=== PATIENT | female | born 1960 | race Caucasian/White ===

== ENCOUNTER 2017-09-29 08:50 | Inpatient (IN) | payer OTHER ==
[~2017-09-29] VITALS: Ht 167.6 cm; Wt 61.2 kg
--- NOTE | 2017-09-29 09:01 | ED CARDIAC/CP/PALPITATIONS ---
History of Present Illness General Chief Complaint: Chest Pain Stated Complaint: CHEST PAIN X 3 DAYS Source: patient Exam Limitations: no limitations Vital Signs & Intake/Output Vital Signs & Intake/Output Vital Signs Date Time Temp Pulse Resp B/P B/P Pulse O2 O2 Flow FiO2 Mean Ox Delivery Rate 09/30 0731 98.7 67 20 105/56 95 Room Air 09/30 0000 Room Air 09/29 2257 99.4 77 18 101/55 94 Room Air 09/29 2156 Room Air 09/29 1700 97 Room Air 09/29 1700 98.4 77 18 133/66 96 Room Air 09/29 1657 98.4 77 18 133/66 96 Room Air 09/29 1524 98.7 73 20 120/62 95 Room Air 09/29 1335 98.6 88 19 158/70 98 Room Air 09/29 1023 98 Room Air 09/29 0856 98.2 100 18 160/73 96 Room Air ED Intake and Output 09/30 0000 09/29 1200 Intake Total 490 0 Output Total Balance 490 0 Intake, IV 10 Intake, Oral 480 0 Number 0 Bowel Movements Patient 135 lb 140 lb Weight Weight Reported by Patient Measurement Method Allergies Coded Allergies: nitrofurantoin (From MACRODANTIN) (UNSURE 09/29/17) Reconcile Medications No Known Home Medications Triage Note: 57 YEAR OLD FEMALE TO ER WITH COMPLAINTS OF NON RADIATING REPRODUCIBLE L SIDE CP FOR THE PAST 3 DAYS WITH SOME SOB. ALSO COMPLAINS OF COUGH,SINUS CONGESTION , PAIN INCREASES WITH MOVEMENT AND COUGHING Triage Nurses Notes Reviewed? yes Onset: Gradual Duration: waxing and waning Timing: recent history Quality/Severity: moderate, sharp, stabbing Radiation: jaw, arms HPI: Patient is a 57-year-old female who presents emergency room with concerns of a three-day history of nasal congestion not feeling well mild nonproductive cough and left-sided chest wall pain made worse with positional movements. Denies any cardiac history denies any smoking history drink alcohol on occasion Complains of dizziness and intermittent episodes of left jaw and arm pain Patient took aspirin yesterday none today Denies any nausea vomiting leg swelling hemoptysis history of DVT or PE (Latanya REYES,Marcio) Past History Travel History Traveled to [place] past 21 day No Medical History Any Pertinent Medical History? none Neurological: NONE EENT: NONE Cardiovascular: NONE Respiratory: NONE Gastrointestinal: NONE Hepatic: NONE Renal: NONE Musculoskeletal: NONE Psychiatric: NONE Endocrine: NONE Blood Disorders: NONE Cancer(s): NONE ACCOUNTS PAYABLE COORDINATOR/Reproductive: NONE Surgical History Surgical History: non-contributory Psychosocial History What is your primary language Sinhala Tobacco Use: Never used ETOH Use: denies use Illicit Drug Use: denies illicit drug use Family History Hx Contributory? No (Marcio Morris) Review of Systems Review of Systems Constitutional: Reports: no symptoms. EENTM: Reports: see HPI. Respiratory: Reports: see HPI, cough. Cardiovascular: Reports: no symptoms. GI: Reports: no symptoms. Genitourinary: Reports: no symptoms. Musculoskeletal: Reports: no symptoms. Skin: Reports: no symptoms. Neurological/Psychological: Reports: no symptoms. Hematologic/Endocrine: Reports: no symptoms. Immunologic/Allergic: Reports: no symptoms. All Other Systems: Reviewed and Negative (Marcio Morris) Physical Exam Physical Exam General Appearance: no apparent distress, alert, comfortable Head: atraumatic Eyes: Bilateral: normal appearance, PERRL, EOMI. Ears, Nose, Throat: normal ENT inspection, hearing grossly normal, nasal congestion Neck: normal inspection Respiratory: normal breath sounds, chest non-tender, no respiratory distress Cardiovascular: regular rate/rhythm Gastrointestinal: normal bowel sounds, soft, non-tender Extremities: no edema Neurologic/Psych: no motor/sensory deficits, awake, alert, oriented x 3 Skin: intact, normal color Core Measures ACS in differential dx? Yes CVA/TIA Diagnosis No Sepsis Present: No Sepsis Focused Exam Completed? No (Marcio Morris) Progress Differential Diagnosis: AMI, aortic dissection, atrial fibrillation, cholecystitis, CHF/pulm edema, costochondritis, hyperkalemia, hypovolemia, hyperthyroid, hyperventilation, intracranial hemorrhage, musculoskeletal pain, myocarditis, pancreatitis, pericarditis, pneumonia, pneumothorax, PSVT, pulmonary embolism, PUD/GERD, PVCs/PACs, respiratory failure, rib fracture, sepsis, unstable angina, V-fib/V-Tach, WPW syndrome Plan of Care: Orders Procedure Date/time Status Change service to 09/30 0720 Active CBC WITHOUT DIFFERENTIAL 09/30 0600 Active BASIC ELECTROLYTES PLUS BUN&CR 09/30 0600 Active Regular Diet 09/29 D Active THERAPIST ORDERS 09/290 Complete RT: Evaluation 09/29 2153 Active Pathway - chart 09/30 1811 Active House Staff 05/24 1812 Active Weight 09/29 1811 Complete Vital Signs 09/29 181 Active Teach/Educate 09/29 181 Active Pain Treatment and Response 09/29 181 Active Nutritional Intake, Monitor 09/29 181 Active Isolation 09/29 181 Active Intake & Output 09/29 181 Active Patient Care Conference 09/29 181 Active Activity/Ambulation 09/29 181 Active STREP PNEUMO URINARY ANTIGEN 09/29 181 Active LEGIONELLA URINARY ANTIGEN 09/29 181 Active URINALYSIS 09/29 181 Active CYTOLOGY SPECIMEN 09/29 181 Active Patient Data 09/29 1550 Active ED Holding Orders 09/29 1533 Active Admit to inpatient 09/29 1533 Active Vital Signs 09/29 1533 Active Code Status 09/29 1533 Active LOWER RESPIRATORY CULTURE 09/29 1455 Active BLOOD CULTURE 09/29 1455 Active TROPONIN LEVEL 09/29 1300 Complete EKG 09/29 1300 Active Intake & Output 09/29 1023 Active RHEUMATOID FACTOR 09/29 1002 Complete WESTERGREN SED RATE 09/29 1002 Complete ANTINUCLEAR ANTIBODY 09/29 1002 Active TROPONIN LEVEL 09/29 0901 Complete D-DIMER 09/29 0901 Complete COMPREHENSIVE METABOLIC PANEL 09/29 0901 Complete CBC WITHOUT DIFFERENTIAL 09/29 0901 Complete EKG 09/29 0853 Active TRC EVALUATION (GEN) 09/29 UNK Complete Lab Add-on Test 09/29 UNK Active VTE Mechanical Prophylaxis 09/29 UNK Active Current Medications Sig/Pramod Start time Last Medication Dose Stop Time Status Admin Albuterol Sulfate 3 ML TID 09/30 0900 AC 09/29 (Proventil) 213 Acetaminophen 325 MG Q6P PRN 09/29 181 AC (Tylenol) Ibuprofen 600 MG Q6P PRN 09/29 181 AC 09/29 (Motrin) 211 Ketorolac 15 MG Q6P PRN 09/29 181 AC Tromethamine (Toradol) Laboratory Tests 09/29/17 1915: TB Test (QFT) Mitogen Pending, TB Test Mitogen - Nil Pending, TB Test Antigen - Nil Pending, TB Test (QFT) Interp Pending 09/29/17 1300: Troponin I < 0.01 09/29/17 1002: Rheum Factor Semi-Quant < 8.6 09/29/17 1002: Anion Gap 12, Estimated GFR > 60, BUN/Creatinine Ratio 21.3, Glucose 135 H, Calcium 9.6, Total Bilirubin 0.5, AST 22, ALT 22, Alkaline Phosphatase 75, Troponin I < 0.01, Total Protein 7.6, Albumin 4.6, Globulin 3.0, Albumin/ Globulin Ratio 1.5, D-Dimer High Sensitivty 201, CBC w Diff NO MAN DIFF REQ, RBC 4.40, MCV 89.6, MCH 31.1 H, MCHC 34.7, RDW 13.7, MPV 8.8, Gran % 61.3, Lymphocytes % 32.1, Monocytes % 5.4, Eosinophils % 0.7, Basophils % 0.5, Absolute Granulocytes 8.6 H, Absolute Lymphocytes 4.5 H, Absolute Monocytes 0.8 H, Absolute Eosinophils 0.1, Absolute Basophils 0.1, ESR Westergren 61 H, JAC Titer Pending, Anti-Nuclear Antibody Pending Microbiology 09/29 1809 URINE ROUT: Legionella Antigen - COLB 09/29 181 URINE ROUT: Streptococcus pneumoniae Antigen (M - COLB 09/29 1535 BLOOD: Blood Culture - RECD 09/29 1520 BLOOD: Blood Culture - RECD 09/29 1455 LOWER RESP: Respiratory Culture - COLB 09/29 1455 LOWER RESP: Gram Stain - COLB Patient initially denies any smoking history however after reviewing chest x-ray findings for concerns of lytic lesion to the left chest as she was given copies of the chest x-ray she does admit that she is a smoker where "I don't want to a smoking history on my record due to insurance not covering me" I discussed chest x-ray results with patient for concerns of multiple myeloma versus metastasis in which she will receive CT scan of chest Patient was aware of the image findings CT scan was resulted showing concerns of cavitary lesion possible consolidation and a small suspicion of septic emboli Discussed patient with Dr. Palma who advised patient to be admitted for further evaluation treatment and receive echocardiograM and IV antibiotics and pulmonary consultation Discussed admission with patient who agrees and has no questions Diagnostic Imaging: Viewed by Me: Radiology Read, CT Scan. Radiology Impression: acute abnormality Initial ED EKG: normal p-waves, normal QRS complex, normal sinus rhythm, NSR 92 BPM Comments: PATIENT: YOBANI JULIEN PRESENT AGE: 57 PATIENT ACCOUNT NO: [id number] : 60 LOCATION: [facility] ORDERING PHYSICIAN: Marcio REYES SERVICE DATE: 09/29/17 EXAM TYPE: CAT - CTA CHEST-PULMONARY EMBOLISM EXAMINATION: CT ANGIOGRAM CHEST WITHOUT AND WITH CONTRAST (CT PULMONARY ANGIOGRAM FOR PE) CLINICAL INFORMATION: Left chest wall pain. Shortness of breath. Evaluate for abnormality seen on the recent chest x-ray. COMPARISON: Chest x-ray of 09/29/2017 performed at 10:44 AM. TECHNIQUE: Prior to contrast administration, noncontrast localization images were obtained. Subsequently, multidetector volumetric imaging was performed from the thoracic inlet to below the diaphragms following the administration of 95 mL 320 intravenous contrast. No contrast reaction reported. Sagittal, coronal, and MIP oblique sagittal reformatted images were obtained on the CT workstation, uploaded to PACS, and reviewed. Total exam dose-length product 207.80 mGy-cm. FINDINGS: QUALITY OF STUDY/CONTRAST BOLUS: Satisfactory PULMONARY ARTERIES: No central or segmental pulmonary emboli. THORACIC AORTA: No aneurysm or dissection. LUNG: [id number]-[id number] changes of emphysema are noted with upper lobe predominance. There are multiple scattered tiny tree-in-bud opacities bilaterally, greater in the left upper lobe. A large cavitary thick-walled lesion is noted in the left apex corresponding to the finding seen on the chest x-ray measuring 1.3 x 2.4 x 2.2 cm. Several other smaller similar cavitary thick-walled lesions are noted in the left upper lobe. Scattered bronchial and bronchiolar wall thickening is noted. There are small patchy airspace opacities surrounding the thickened bronchi/bronchioles in the superior segment of the left upper lobe as well as left upper lobe anteromedially. There is a largest consolidation in the left upper lobe anterior paramediastinal region in the mid chest (series 2 image 260), measuring approximately 1.5 x 4.8 cm in AP and transverse dimension. There is a 0.4 cm discrete nodule in the right lower lobe laterally (series 2 image 290). Less pronounced changes of bronchial thickening and tree-in-bud opacities are noted in the right lung. There are biapical pleural parenchymal densities presumably representing scarring. A 0.4 cm oval nodular density is noted in the left lower lobe posteriorly (series 2 image 304). PLEURA: No pleural effusion or pneumothorax. MEDIASTINUM: Normal heart size. Trace pericardial effusion. No hilar or mediastinal lymphadenopathy. No evidence of septal bowing or right heart strain. CHEST WALL/AXILLA: No axillary or internal mammary lymphadenopathy. OSSEOUS STRUCTURES: No acute or suspicious osseous abnormality. UPPER ABDOMEN: There is a partially exophytic hypodense lesion arising from the upper pole of the left kidney measuring 2.2 cm (series 2 image 432) which does not meet CT Hounsfield units criteria for a simple cyst. Mild left pelviectasis is partially seen. No reflux of contrast into the hepatic veins to suggest elevated right heart pressures. IMPRESSION: 1. No evidence of pulmonary embolism. 2. Frka-jb-pcnyossx changes of centrilobular emphysema with upper lobe predominance. 3. Multiple thick-walled cavitary lesions in the left lung predominantly in the left upper lobe with the largest one in the left apex most probably represent thick-walled dilated bronchi. Possibility of septic emboli is in the differential, however, is thought to be less likely. Multiple tree-in-bud opacities throughout the lungs, left greater than right as detailed above. Left upper lobe paramediastinal consolidation with air bronchograms. The findings are consistent with airway infection and bronchopneumonia. Recommend close clinical follow up and imaging follow up. 4. No evidence of lymphadenopathy or pleural effusions. 5. A few discrete pulmonary nodules in the bilateral lower lobes measuring 4 mm. 6. A 2.2 cm partially exophytic mass arising from the posterior aspect of the left renal upper pole. Recommend ultrasound correlation. VTE: Negative DICTATED BY: Henri HARMON,Anal DATE/TIME DICTATED:09/29/171343 AERONAUTICS TEACHER:SUSANNE DATE/TIME TRANSCRIBED:09/29/171343 PATIENT: YOBANI JULIEN PRESENT AGE: 57 PATIENT ACCOUNT NO: [id number] : 60 LOCATION: [facility] ORDERING PHYSICIAN: Marcio REYES SERVICE DATE: 09/29/17 EXAM TYPE: RAD - XRY-CHEST XRAY, TWO VIEWS EXAMINATION: XR CHEST 2 VIEWS CLINICAL INFORMATION: Left chest wall pain. COMPARISON: None. TECHNIQUE: Frontal and lateral views of the chest were obtained. FINDINGS: The heart, great vessels, pulmonary vasculature and mediastinum are normal. The lungs show no focal infiltrate, effusion or pneumothorax. Approximately 3 small nodules are questioned in the lateral left apex and within the retrosternal region. Lytic foci are suspected within the left first, third and fourth ribs, the left clavicle and the right fifth rib. There is no acute osseous abnormality. IMPRESSION: Small left upper lobe and retrosternal nodules are questioned. Lytic foci are seen within the bilateral ribs and left clavicle. The possibilities of metastases and multiple myeloma are raised. Recommend further evaluation with CT. DICTATED BY: Ben Harris MD DATE/TIME DICTATED:09/29/171141 AERONAUTICS TEACHER:SUSANNE (Marcio Morris) Departure Departure Disposition: STILL A PATIENT Condition: Stable Clinical Impression Primary Impression: Cavitary lesion of lung Secondary Impressions: Leukocytosis, Pneumonia Departure Forms: Customer Survey General Discharge Information Prescriptions: Current Visit Scripts No Known Home Medications Admission Note Spoke With: Sj Noguera MD Documentation of Exam: Documentation of any treatments & extenuating circumstances including Concerns Regarding Discharge (functional status, medication knowledge or non-compliance, living conditions, etc.) that warrant an admission rather than observation: [ Discussed patient with Dr. NOGUERA in which patient requires general medicine admission for concerns of abnormal CT scan findings and symptoms of chest pain and coughing, patient requires pulmonary consultation and infectious disease consultation echocardiogram repeat labs and IV antibiotics] (Marcio Morris) PA/SHELL TRIM OPERATOR Co-Sign Statement Statement: ED Attending supervision documentation- [X] I saw and evaluated the patient. I have also reviewed all the pertinent lab results and diagnostic results. I agree with the findings and the plan of care as documented in the PA's/SHELL TRIM OPERATOR's documentation. [X] I have reviewed the ED Record and agree with the PA's/SHELL TRIM OPERATOR's documentation. [] Additions or exceptions (if any) to the PAs/SHELL TRIM OPERATOR's note and plan are summarized below: [Patient to be admitted for cavitary lesion seen on the chest x-ray as well as the possibility of septic emboli. Patient will need pulmonary consultation as well as cardiology consultation for an echocardiogram, broad-spectrum antibiotics, IV fluids] (Autumn HARMON,Ismael Rainey) Critical Care Note Critical Care Note Critical Care Time: non-applicable (Marcio Morris)
[2017-09-29 10:13] LABS: ABSOLUTE BASOPHIL COUNT 0.1 /CUMM (0.0-0.2); ABSOLUTE EOSINOPHIL COUNT 0.1 /CUMM (0.0-0.7); ABSOLUTE GRANULOCYTE CT 8.6 /CUMM (1.4-6.5); ABSOLUTE LYMPH COUNT 4.5 /CUMM (1.2-3.4); ABSOLUTE MONOCYTE COUNT 0.8 /CUMM (0.10-0.60); BASOPHIL % 0.5 % (0.0-2.0); EOSINOPHIL % 0.7 % (0-5); GRANULOCYTE % 61.3 % (42.2-75.2); HEMATOCRIT 39.4 % (37-47); MEAN CORPUSCULAR HGB 31.1 PG (27.0-31.0); MEAN CORPUSCULAR HGB CONC 34.7 G/DL (33.0-37.0); MEAN CORPUSCULAR VOLUME 89.6 FL (81.0-99.0); MEAN PLATELET VOLUME 8.8 FL (7.4-10.4); PLATELET COUNT 308 /CUMM (130-400); RBC DISTRIBUTION WIDTH 13.7 % (11.5-14.5); WHITE BLOOD CELL COUNT 14.1 /CUMM (4.8-10.8)
--- NOTE | 2017-09-29 11:54 | RADIOLOGY REPORT ---
EXAMINATION: XR CHEST 2 VIEWS CLINICAL INFORMATION: Left chest wall pain. COMPARISON: None. TECHNIQUE: Frontal and lateral views of the chest were obtained. FINDINGS: The heart, great vessels, pulmonary vasculature and mediastinum are normal. The lungs show no focal infiltrate, effusion or pneumothorax. Approximately 3 small nodules are questioned in the lateral left apex and within the retrosternal region. Lytic foci are suspected within the left first, third and fourth ribs, the left clavicle and the right fifth rib. There is no acute osseous abnormality. IMPRESSION: Small left upper lobe and retrosternal nodules are questioned. Lytic foci are seen within the bilateral ribs and left clavicle. The possibilities of metastases and multiple myeloma are raised. Recommend further evaluation with CT.
--- NOTE | 2017-09-29 14:38 | CT SCAN REPORT ---
EXAMINATION: CT ANGIOGRAM CHEST WITHOUT AND WITH CONTRAST (CT PULMONARY ANGIOGRAM FOR PE) CLINICAL INFORMATION: Left chest wall pain. Shortness of breath. Evaluate for abnormality seen on the recent chest x-ray. COMPARISON: Chest x-ray of 09/29/2017 performed at 10:44 AM. TECHNIQUE: Prior to contrast administration, noncontrast localization images were obtained. Subsequently, multidetector volumetric imaging was performed from the thoracic inlet to below the diaphragms following the administration of 95 mL 320 intravenous contrast. No contrast reaction reported. Sagittal, coronal, and MIP oblique sagittal reformatted images were obtained on the CT workstation, uploaded to PACS, and reviewed. Total exam dose-length product 207.80 mGy-cm. FINDINGS: QUALITY OF STUDY/CONTRAST BOLUS: Satisfactory PULMONARY ARTERIES: No central or segmental pulmonary emboli. THORACIC AORTA: No aneurysm or dissection. LUNG: Onkz-sn-rbqthnik changes of emphysema are noted with upper lobe predominance. There are multiple scattered tiny tree-in-bud opacities bilaterally, greater in the left upper lobe. A large cavitary thick-walled lesion is noted in the left apex corresponding to the finding seen on the chest x-ray measuring 1.3 x 2.4 x 2.2 cm. Several other smaller similar cavitary thick-walled lesions are noted in the left upper lobe. Scattered bronchial and bronchiolar wall thickening is noted. There are small patchy airspace opacities surrounding the thickened bronchi/bronchioles in the superior segment of the left upper lobe as well as left upper lobe anteromedially. There is a largest consolidation in the left upper lobe anterior paramediastinal region in the mid chest (series 2 image 260), measuring approximately 1.5 x 4.8 cm in AP and transverse dimension. There is a 0.4 cm discrete nodule in the right lower lobe laterally (series 2 image 290). Less pronounced changes of bronchial thickening and tree-in-bud opacities are noted in the right lung. There are biapical pleural parenchymal densities presumably representing scarring. A 0.4 cm oval nodular density is noted in the left lower lobe posteriorly (series 2 image 304). PLEURA: No pleural effusion or pneumothorax. MEDIASTINUM: Normal heart size. Trace pericardial effusion. No hilar or mediastinal lymphadenopathy. No evidence of septal bowing or right heart strain. CHEST WALL/AXILLA: No axillary or internal mammary lymphadenopathy. OSSEOUS STRUCTURES: No acute or suspicious osseous abnormality. UPPER ABDOMEN: There is a partially exophytic hypodense lesion arising from the upper pole of the left kidney measuring 2.2 cm (series 2 image 432) which does not meet CT Hounsfield units criteria for a simple cyst. Mild left pelviectasis is partially seen. No reflux of contrast into the hepatic veins to suggest elevated right heart pressures. IMPRESSION: 1. No evidence of pulmonary embolism. 2. Cqgf-ax-nswlajeg changes of centrilobular emphysema with upper lobe predominance. 3. Multiple thick-walled cavitary lesions in the left lung predominantly in the left upper lobe with the largest one in the left apex most probably represent thick-walled dilated bronchi. Possibility of septic emboli is in the differential, however, is thought to be less likely. Multiple tree-in-bud opacities throughout the lungs, left greater than right as detailed above. Left upper lobe paramediastinal consolidation with air bronchograms. The findings are consistent with airway infection and bronchopneumonia. Recommend close clinical follow up and imaging follow up. 4. No evidence of lymphadenopathy or pleural effusions. 5. A few discrete pulmonary nodules in the bilateral lower lobes measuring 4 mm. 6. A 2.2 cm partially exophytic mass arising from the posterior aspect of the left renal upper pole. Recommend ultrasound correlation. VTE: Negative
--- NOTE | 2017-09-29 15:52 | History & Physical ---
Justice Moore 09/29/17 1551: General Information and HPI History of Present Illness: Ms. Winslow is a 57 yo F with nicotine dependence and cervical cancer who presents to the ED with CP 3 days. Patient reports she had left-sided chest pain 10/10 in severity that radiated to her left breast. It lasted for hours, was exacerbated by deep inspiration and movement with no alleviating factors. It was accompanied by SOB, nonproductive cough and nasal congestion. Last night she noticed after eating her dinner she felt jaw numbness. Last Tuesday she recalls her CP was accompanied by left arm pain in which she had to use her right arm to move her left due to excruciating pain. She has intermittent migratory joint pains that she sees a Analyst Programmer at [place] for but the diagnosis is unclear. 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 She also reports 15 years ago she was PPD positive and placed on TB medications for 2 days. Her repeat PPD was negative. Five years ago she traveled to [place] and has had a persistent cough since then. Recently at work she found that she has been disoriented but quickly resolves. She has not had an influenza vaccine due to her personal wishes. She denies family history of malignancy, fever, chills, night sweats, nausea, vomiting, epigastric pain, reproducible CP, urinary or bowel symptoms In the ED she was given IV Unasyn 1 dose and ASA 3251 dose Allergies/Medications Allergies: Coded Allergies: nitrofurantoin (From MACRODANTIN) (UNSURE 09/29/17) Home Med list No Known Home Medications Past History Travel History Traveled to [place] past 21 day No Medical History Neurological: NONE EENT: NONE Cardiovascular: NONE Respiratory: NONE Gastrointestinal: NONE Hepatic: NONE Renal: NONE Musculoskeletal: NONE Psychiatric: NONE Endocrine: NONE Blood Disorders: NONE Cancer(s): NONE MACHINE GRAINER/Reproductive: NONE Surgical History Surgical History: non-contributory Past Family/Social History Psychosocial History ETOH Use: denies use Illicit Drug Use: denies illicit drug use Review of Systems Review of Systems Constitutional: Reports: see HPI. Exam & Diagnostic Data Last 24 Hrs of Vital Signs/I&O Vital Signs Date Time Temp Pulse Resp B/P B/P Pulse O2 O2 Flow FiO2 Mean Ox Delivery Rate 09/29 1700 97 Room Air 09/29 1700 98.4 77 18 133/66 96 Room Air 09/29 1657 98.4 77 18 133/66 96 Room Air 09/29 1524 98.7 73 20 120/62 95 Room Air 09/29 1335 98.6 88 19 158/70 98 Room Air 09/29 1023 98 Room Air 09/29 0856 98.2 100 18 160/73 96 Room Air Intake & Output 09/29 1600 09/29 0800 09/29 0000 Intake Total 0 Output Total Balance 0 Intake, Oral 0 Patient 140 lb Weight Physical Exam General Appearance Alert, Oriented X3, Cooperative, No Acute Distress HEENT Atraumatic, PERRLA, EOMI, Mucous Membr. moist/pink Cardiovascular Regular Rate, Normal S1, Normal S2, No Murmurs Lungs Clear to Auscultation, Normal Air Movement Abdomen Normal Bowel Sounds, Soft, No Tenderness Extremities No Edema, Normal Pulses, No Tenderness/Swelling Last 24 Hrs of Labs/Ramos: Laboratory Tests 09/29/17 1915: TB Test (QFT) Mitogen Pending, TB Test Mitogen - Nil Pending, TB Test Antigen - Nil Pending, TB Test (QFT) Interp Pending 09/29/17 1300: Troponin I < 0.01 09/29/17 1002: Rheum Factor Semi-Quant < 8.6 09/29/17 1002: Anion Gap 12, Estimated GFR > 60, BUN/Creatinine Ratio 21.3, Glucose 135 H, Calcium 9.6, Total Bilirubin 0.5, AST 22, ALT 22, Alkaline Phosphatase 75, Troponin I < 0.01, Total Protein 7.6, Albumin 4.6, Globulin 3.0, Albumin/ Globulin Ratio 1.5, D-Dimer High Sensitivty 201, CBC w Diff NO MAN DIFF REQ, RBC 4.40, MCV 89.6, MCH 31.1 H, MCHC 34.7, RDW 13.7, MPV 8.8, Gran % 61.3, Lymphocytes % 32.1, Monocytes % 5.4, Eosinophils % 0.7, Basophils % 0.5, Absolute Granulocytes 8.6 H, Absolute Lymphocytes 4.5 H, Absolute Monocytes 0.8 H, Absolute Eosinophils 0.1, Absolute Basophils 0.1, ESR Westergren 61 H, JAC Titer Pending, Anti-Nuclear Antibody Pending Microbiology 09/29 1810 URINE ROUT: Legionella Antigen - COLB 09/29 1810 URINE ROUT: Streptococcus pneumoniae Antigen (M - COLB 09/29 1535 BLOOD: Blood Culture - RECD 09/29 1520 BLOOD: Blood Culture - RECD 09/29 1455 LOWER RESP: Respiratory Culture - ORD 09/29 1455 LOWER RESP: Gram Stain - ORD Diagnostic Data EKG Results NSR, HR 62, QTc 415 Assessment/Plan Assessment: Ms. Winslow is a 57 yo F with nicotine dependence and cervical cancer who presents to the ED with CP 3 days. Problem list: #Atypical chest pain -pleuritic in nature and less likely ACS #?CAP #Left upper lobe and retrosternal nodules - may be secondary to malignancy given her smoking history Plan: Admit to general med for further evaluation and management Renal ultrasound for previous renal mass seen Watch off antibiotics We will obtain a quantiferon for history of positive PPD as per ID Pulm consult Obtain records from [place] Diet: Regular DVT ppx: Enoxaparin Code: Full As Ranked By This Provider Problem List: 1. Pneumonia 2. Cavitary lesion of lung 3. Leukocytosis Core Measures/Misc (01/23) Acute Coronary Syndrome ACS Diagnosis: No Congestive Heart Failure Congestive Heart Failure Diagnosis No Cerebrovascular Accident CVA/TIA Diagnosis: No VTE (View Protocol) VTE Risk Factors Age>40 No Mechanical VTE Prophylaxis d/t N/A MechProphylax Ordered No VTE Pharm Prophylaxis d/t LowRisk-No Interven Req'd Sepsis (View protocol) Sepsis Present: No If YES complete Sepsis Event Note If YES complete Sepsis Event Note Sj Noguera MD 09/29/17 1733: Core Measures/Misc (01/23) Sepsis (View protocol) If YES complete Sepsis Event Note If YES complete Sepsis Event Note Attending MD Review Statement Attending Statement Attending MD Statement: examined this patient, discuss w/resident/PA/BRIM SETTER, agreed w/resident/PA/BRIM SETTER, discussed with family, reviewed EMR data (avail), discussed with nursing, discussed with case mgmt, amended to note Attending Assessment/Plan: Patient is a 57-year-old female with history of degenerative joint disease who presents to the emergency room with complaints of chest pain going on for the past 3 days. Denies fever chills. Denies weight loss. Denies diaphoresis. Denies recent travel. CT imaging in the emergency room shows mild to moderate emphysema as well as multiple thick-walled cavitary lesions predominantly in the left upper lobe. Concerns have been rates for bronchopneumonia versus septic emboli. Also incidentally noted is a 2.2 cm partially exophytic mass in the left renal upper pole. She has few discrete pulmonary nodules bilateral lower lung bases 4 mm in size. She is afebrile. She is hemodynamically stable. She does have an elevated white count. She does report cough productive of clear phlegm. Due to concern for pneumonia and particularly to rule out septic emboli, she was referred to the medical service for further management. On examination she is not in any respiratory distress. She has poor entry bilaterally with no added sounds. heart sounds are regular. Abdomen is soft and nontender. No peripheral edema. No palpable lymphadenopathy. Assessment Patient is a chronic smoker with a greater than 40 pack year history presenting with complaints of chest pain. CT imaging raises concern for multifocal cavitary lesions. Pneumonia is definitely within the differential however she is afebrile. Her cough is mild and not productive of purulent sputum. Her white count which would support a pneumonia has been elevated for several months according to the patient. Also within the differential is tuberculosis however she reports no night sweats or weight loss. She denies any hemoptysis. She gives a questionable history of a positive PPD test in the past. She does have obvious degenerative joint disease on examination. She has joint deformity on some of her proximal interphalangeal joints. She follows with a receptionist scheduler whom she states told her that he does not have a diagnosis for her joint disease. Her pulmonary findings could certainly be some extra-articular manifestation of an inflammatory joint process. At present she warrants treatment for a possible pulmonary infectious process pending further workup. Problems: 1. Multiple cavitary lung lesions raising concern for pneumonia. 2. Emphysema 3. Arthritis 4. History of positive PPD (which patient reports became -2 days later.) 5. Renal Lesion Plan: -Admit to inpatient medical service. -IV antibiotic therapy with Unasyn. Obtain ID consultation. -Pulmonary consultation. -Check rheumatoid factor level. -Begin patient on bronchodilator therapy with albuterol metered-dose inhaler every 4 hours as needed for shortness of breath. -Outpatient follow-up with the pulmonary service for pulmonary function testing and possibly bronchoscopy. -Renal sonogram for further evaluation of renal lesion. Cesar Tee 09/29/17 1803: Core Measures/Misc (01/23) Sepsis (View protocol) If YES complete Sepsis Event Note If YES complete Sepsis Event Note Resident Review Statement Other Findings: Ms. Winslow comes a 57-year-old female with significant past medical history of hyperlipidemia, and questionable rheumatoid disease [currently being worked up that [facility]], with no definitive diagnosis yet - bilateral PIP joint nodules and elevated ESR. She states that on Tuesday evening, she started having chest pain which felt like heaviness. She denied any significant radiation. She went to bed and the pain had subsided Tuesday morning however again came on Tuesday evening, it was intermittent, worse with movement, associated with dyspnea and cough, productive of clear sputum. She states that the chest pain was very severe. She elected not to come in Tuesday night however was urged by her coworkers as her chest pain was persistent. She denied any palpitations. She denies any fever, chills, nausea, vomiting, GI disturbance. She denies any recent rash. She denies any recent weight loss, night sweats or hemoptysis. She denies any dyspnea with exertion, orthopnea, or recent swelling. She denies any headache, visual or hearing disturbances. She denies any recent travel. She does note that she smokes 1 pack a day for the last 45 years and is a social drinker, around 4 drinks per month. She denies recreational drug use. She works an project engineering director office and states overall she is healthy and active. When asked about previous tuberculosis exposure, she denies any known exposure or travel to endemic areas stating she's only been to [place] twice. She does note that previously her PPD was positive and she was started on treatment, however did not tolerated and discontinued after 2 days. She states that a repeat PPD was negative. Vitals on admission blood pressure 160/73 saturating 96% on room air. Pulse rate 100. Physical exam as dictated above. Labs as dictated above with note of leukocytosis, 14.1. H&H 13.7/39.7. Imaging as dictated above with note of mild to moderate centrilobular emphysema, with multiple left upper lobe thick-walled cavitary lesions, with multiple tree- in-bud opacities throughout the lungs bilaterally. Additionally, left upper lobe paramediastinal consolidations with air bronchograms were also noted. Additionally, a partially exophytic left upper kidney mass was also identified. Problem list/assessment and plan * Chest pain with newly discovered lung cavitary lesion and consolidation * Admit to for further workup of her lung mass. * She does have a smoking history significant for 45 pack years, and is at a risk of lung cancer. * With these findings as well as leukocytosis, postobstructive pneumonia is a likely diagnosis. She doesn't appear ill at the moment, and will consider empirically treating if she develops a fever or . 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 We will obtain a quantiferon-TB gold test for further evaluation, as well as an Infectious Disease consult. * Other etilogies include inflammatory disorders given her ongoing rheumatological evaluation with elevated ESR including systemic vasculitis, such as granulomatosis with polyangiitis although the patient does not have any fevers, and the lung findings do not appear hemorrhagic; bronchiolitis obliterans organizing pneumonia/cryptogenic organizing pneumonia. We will obtain a Pulmonary consult to maintenance helper us in the diagnosis and workup including possible bronchoscopy with biopsy to evaluate for her questionable malignancy/ mass. Renal Mass * We will further evaluate with an abdominal/renal ultrasound. * As indicated above she is at high risk for malignancy given her smoking history. The mass is not cystic radiographically and may represent a malignancy. No overt renal failure, hematuria or obstruction at the moment. Depending on the ultrasound results, we will also involve Urology for further evaluation. * We will send urine off for analysis and cytology for now in addition to the US. FULL CODE
[2017-09-29 17:00] VITALS: BP 133/66
--- NOTE | 2017-09-29 17:38 | Admission Certification ---
Admission Certification Certification Statement - As attending physician, I certify that at the time of - admission, based on clinical presentation, severity of - symptoms, need for further diagnostic testing and - therapeutic interventions, and risk of adverse outcomes - without in-hospital treatment, in my clinical assessment, - this patient requires an acute hospital stay for a minimum - of two nights or longer. I have also considered psychsocial - factors such as support system, advanced age, financial - issues, cognitive issues, and failed out-patient treatments, - past re-admission history, safety of patient, and lack of - compliance as applicable. Specific rationale supporting this admission is: Patient requires hospitalization for management of her pneumonia.
--- NOTE | 2017-09-29 18:17 | Cons- Infect Disease ---
General Information and HPI Consulting Request Date of Consult: 09/29/17 Requested By: Sj Noguera MD Reason for Consult: Cavitary lung disease Source of Information: patient, friend History of Present Illness: This is a 57-year-old woman, 45 pack-year smoker, followed over the past several months by a felt hat flanging operator at [place] for evaluation of a leukocytosis, elevated ESR and arthritis of both hands, with no specific diagnosis made, admitted today after she presented to the emergency room with several days of severe left-sided chest pain, associated with sinus congestion, with no significant cough, shortness of breath, fevers, chills or sweats. She has had no recent travel or ill contacts. She has no history of TB history or exposure. She denies any drug abuse. On admission she was afebrile. Laboratory data revealed a white blood cell count of 14,000, BUN/creatinine 17 and 0.8, with normal liver enzymes , d-dimer 201. Chest x-ray revealed small left upper lobe and retrosternal nodules. CTA of the chest revealed mild to moderate changes of centrilobular emphysema, with multiple thick-walled cavitary lesions in the left lung, predominantly the left upper lobe, with multiple tree-in-bud opacities throughout both lungs, left greater than right; a 2.2 cm partially exophytic mass arising from the posterior aspect of the left renal upper pole; no evidence of pulmonary emboli. She was given a dose of Unasyn in the ER. At present she does not report any pain and has no other complaints. Allergies/Medications Allergies: Coded Allergies: nitrofurantoin (From MACRODANTIN) (UNSURE 09/29/17) Home Med List: No Known Home Medications Past History Travel History Traveled to [place] past 21 day No Medical History Neurological: NONE EENT: NONE Cardiovascular: NONE Respiratory: NONE Gastrointestinal: NONE Hepatic: NONE Renal: NONE Musculoskeletal: NONE Psychiatric: NONE Endocrine: NONE Blood Disorders: NONE Cancer(s): cervical cancer FINANCIAL COMPLIANCE EXAMINER/Reproductive: NONE Other Medical Hx: Positive HPV Surgical History Surgical History: non-contributory Psychosocial History ETOH Use: denies use Illicit Drug Use: denies illicit drug use Review of Systems Review of Systems Constitutional: Denies: unexplained weight loss. All Other Systems: Reviewed and Negative Exam & Diagnostic Data Last 24 Hrs of Vital Signs/I&O Vital Signs Date Time Temp Pulse Resp B/P B/P Pulse O2 O2 Flow FiO2 Mean Ox Delivery Rate 09/29 1657 98.4 77 18 133/66 96 Room Air 09/29 1524 98.7 73 20 120/62 95 Room Air 09/29 1335 98.6 88 19 158/70 98 Room Air 09/29 1023 98 Room Air 09/29 0856 98.2 100 18 160/73 96 Room Air Intake & Output 09/29 1600 09/29 0800 09/29 0000 Intake Total 0 Output Total Balance 0 Intake, Oral 0 Patient 140 lb Weight Physical Exam Other Physical Findings: She is awake and alert in no acute distress. She is afebrile. Skin reveals no rash. HEENT exam is negative. Neck is supple with no adenopathy. Chest no reproducible tenderness over the left chest. Lungs mild left upper lung wheeze. Heart regular rhythm with no murmur. Abdomen is soft, nontender with positive bowel sounds. Back no CVA tenderness. Extremities rheumatoid appearing changes to the fingers of both hands; no cyanosis, clubbing or edema. Neuro is without focality. Last 24 Hours of Lab Results: Laboratory Tests 09/29 09/29 1300 1002 Chemistry Sodium (137 - 145 mmol/L) 140 Potassium (3.5 - 5.1 mmol/L) 4.9 Chloride (98 - 107 mmol/L) 99 Carbon Dioxide (22 - 30 mmol/L) 29 Anion Gap (5 - 16) 12 BUN (7 - 17 mg/dL) 17 Creatinine (0.5 - 1.0 mg/dL) 0.8 Estimated GFR (>60 ml/min) > 60 BUN/Creatinine Ratio (7 - 25 %) 21.3 Glucose (65 - 99 mg/dL) 135 H Calcium (8.4 - 10.2 mg/dL) 9.6 Total Bilirubin (0.2 - 1.3 mg/dL) 0.5 AST (14 - 36 U/L) 22 ALT (9 - 52 U/L) 22 Alkaline Phosphatase (<127 U/L) 75 Troponin I (< 0.11 ng/ml) < 0.01 < 0.01 Total Protein (6.3 - 8.2 g/dL) 7.6 Albumin (3.5 - 5.0 g/dL) 4.6 Globulin (1.9 - 4.2 gm/dL) 3.0 Albumin/Globulin Ratio (1.1 - 2.2 %) 1.5 Coagulation D-Dimer High Sensitivty (0 - 243 ng/ml) 201 Hematology CBC w Diff NO MAN DIFF REQ WBC (4.8 - 10.8 /CUMM) 14.1 H RBC (4.20 - 5.40 /CUMM) 4.40 Hgb (12.0 - 16.0 G/DL) 13.7 Hct (37 - 47 %) 39.4 MCV (81.0 - 99.0 FL) 89.6 MCH (27.0 - 31.0 PG) 31.1 H MCHC (33.0 - 37.0 G/DL) 34.7 RDW (11.5 - 14.5 %) 13.7 Plt Count (130 - 400 /CUMM) 308 MPV (7.4 - 10.4 FL) 8.8 Gran % (42.2 - 75.2 %) 61.3 Lymphocytes % (20.5 - 51.1 %) 32.1 Monocytes % (1.7 - 9.3 %) 5.4 Eosinophils % (0 - 5 %) 0.7 Basophils % (0.0 - 2.0 %) 0.5 Absolute Granulocytes (1.4 - 6.5 /CUMM) 8.6 H Absolute Lymphocytes (1.2 - 3.4 /CUMM) 4.5 H Absolute Monocytes (0.10 - 0.60 /CUMM) 0.8 H Absolute Eosinophils (0.0 - 0.7 /CUMM) 0.1 Absolute Basophils (0.0 - 0.2 /CUMM) 0.1 Last 24 Hours of Ramos Results: Blood cultures September 29 pending Diagnostic Data Recent Imaging Findings: Chest x-ray revealed small left upper lobe and retrosternal nodules. CTA of the chest revealed mild to moderate changes of centrilobular emphysema, with multiple thick-walled cavitary lesions in the left lung, predominantly the left upper lobe, with multiple tree-in-bud opacities throughout both lungs, left greater than right; a 2.2 cm partially exophytic mass arising from the posterior aspect of the left renal upper pole; no evidence of pulmonary emboli. Assessment/Plan Assessment/Plan Impression: This is a 57-year-old woman, 45 pack-year smoker, with no significant past medical history, seen in consultation by a felt hat flanging operator at [place] over the past few months for evaluation of a leukocytosis, elevated ESR and arthritis of both hands, with no specific diagnosis made, admitted today with several days of severe left-sided chest pain, with no significant cough, shortness of breath, fevers, chills or sweats, found to be afebrile with a leukocytosis and with a CT of the chest revealing multiple thick-walled cavitary lesions in the left lung, predominantly the left upper lobe, with multiple tree-in-bud opacities throughout both lungs. The etiology of these cavities is unclear. She does report a history of an abnormal CT of the chest approximately 2 years prior to admission at [place] and a CD or copy of the report would be helpful to determine the chronicity of these cavities. The arthritic changes of her hands raise concern for rheumatoid arthritis or a vasculitis, and the possibility of a rheumatoid lung, for example with necrobiotic pulmonary nodules, could be considered. An infectious process seems less likely given the absence of fever and cough and, though her white blood cell count is elevated, this is apparently chronic. TB or a fungal process seems unlikely given the acute onset of her chest pain and lack of other more chronic symptoms. An underlying malignancy must also be considered in this heavy smoker though this is felt by Radiology to be less likely. The etiology of her renal mass is unclear and further evaluation will be necessary. Suggestion: 1. Pulmonary evaluation 2. Obtain the CD or a copy of her previous CT of the chest 3. Serum for QuantiFERON 4. ESR, rheumatoid factor and JAC 5. Renal ultrasound 6. Would follow off antibiotics pending above Consult Acknowledgment - Thank you for your consult request.
--- NOTE | 2017-09-29 20:48 | ULTRASOUND REPORT ---
EXAMINATION: RENAL ULTRASOUND CLINICAL INFORMATION: Follow-up abnormal exam. Follow-up renal lesion. COMPARISON: Same day chest CTA which includes the upper abdomen. TECHNIQUE: Real-time imaging of the kidneys and bladder. FINDINGS: RIGHT KIDNEY: There is neither hydronephrosis nor nephrolithiasis. The right kidney measures 10.5 cm. LEFT KIDNEY: There is neither hydronephrosis nor nephrolithiasis. Within the upper pole of the left kidney, there is an approximately 1.9 x 2.1 x 1.6 cm cyst. No complicated features are demonstrable. The left kidney measures 10.2 cm. BLADDER: The urinary bladder is well distended and unremarkable. The prevoid volume is 378 mL. There is a post void residual of 0 mL. There is no wall thickening. There is no pelvic free fluid. IMPRESSION: Neither hydronephrosis nor nephrolithiasis. Simple appearing cyst within the upper pole of the left kidney.
[2017-09-29 22:57] VITALS: BP 101/55
--- NOTE | 2017-09-30 07:28 | PN- Housestaff ---
See Addendum Subjective Follow-up For: Chest pain Subjective: Patient offers no complaints. Denies CP, SOB, palpitations, nausea, vomtiing. She request that she leaves today and follow up with [facility] Patient is leaving AMA due to prehospital scheduled engagements today. She was explained in detail the risks of leaving AMA Review of Systems Constitutional: Reports: see HPI. Objective Last 24 Hrs of Vital Signs/I&O Vital Signs Date Time Temp Pulse Resp B/P B/P Pulse O2 O2 Flow FiO2 Mean Ox Delivery Rate 09/30 0731 98.7 67 20 105/56 95 Room Air 09/30 0000 Room Air 09/29 2257 99.4 77 18 101/55 94 Room Air 09/29 2156 Room Air 09/29 1700 97 Room Air 09/29 1700 98.4 77 18 133/66 96 Room Air 09/29 1657 98.4 77 18 133/66 96 Room Air 09/29 1524 98.7 73 20 120/62 95 Room Air 09/29 1335 98.6 88 19 158/70 98 Room Air 09/29 1023 98 Room Air 09/29 0856 98.2 100 18 160/73 96 Room Air Intake & Output 09/30 1600 09/30 0800 09/30 0000 Intake Total 480 490 Output Total 400 Balance 80 490 Intake, IV 0 10 Intake, Oral 480 480 Number 0 0 Bowel Movements Output, Urine 400 Patient 135 lb Weight Weight Reported by Patient Measurement Method Physical Exam General Appearance: Alert, Oriented X3, Cooperative, No Acute Distress Cardiovascular: Regular Rate, Normal S1, Normal S2 Lungs: Clear to Auscultation, Normal Air Movement Abdomen: Normal Bowel Sounds, Soft, No Tenderness Current Medications: Current Medications Sig/Pramod Start time Last Medication Dose Route Stop Time Status Admin Acetaminophen 325 MG Q6P PRN 09/29 1815 AC PO Albuterol Sulfate 3 ML TID 09/30 0900 AC 09/29 INH 2130 Ampicillin Sodium/ 0 .STK-MED ONE 09/29 1639 DC Sulbactam Sodium .ROUTE Ampicillin Sodium/ 1,500 MG ONCE ONE 09/29 1630 DC 09/29 Sulbactam Sodium IV 09/29 1659 1639 Sodium Chloride 100 ML Aspirin 0 .STK-MED ONE 09/29 1029 DC PO Aspirin 325 MG ONCE ONE 09/29 1015 DC 09/29 PO 09/29 1016 1023 Ibuprofen 600 MG Q6P PRN 09/29 1814 AC 09/29 PO 2115 Ketorolac 15 MG Q6P PRN 09/29 1814 AC Tromethamine IV Last 24 Hrs of Lab/Ramos Results Last 24 Hrs of Labs/Mics: Laboratory Tests 09/29/17 1915: TB Test (QFT) Mitogen Pending, TB Test Mitogen - Nil Pending, TB Test Antigen - Nil Pending, TB Test (QFT) Interp Pending 09/29/17 1300: Troponin I < 0.01 09/29/17 1002: Rheum Factor Semi-Quant < 8.6 09/29/17 1002: Anion Gap 12, Estimated GFR > 60, BUN/Creatinine Ratio 21.3, Glucose 135 H, Calcium 9.6, Total Bilirubin 0.5, AST 22, ALT 22, Alkaline Phosphatase 75, Troponin I < 0.01, Total Protein 7.6, Albumin 4.6, Globulin 3.0, Albumin/ Globulin Ratio 1.5, D-Dimer High Sensitivty 201, CBC w Diff NO MAN DIFF REQ, RBC 4.40, MCV 89.6, MCH 31.1 H, MCHC 34.7, RDW 13.7, MPV 8.8, Gran % 61.3, Lymphocytes % 32.1, Monocytes % 5.4, Eosinophils % 0.7, Basophils % 0.5, Absolute Granulocytes 8.6 H, Absolute Lymphocytes 4.5 H, Absolute Monocytes 0.8 H, Absolute Eosinophils 0.1, Absolute Basophils 0.1, ESR Westergren 61 H, JAC Titer Pending, Anti-Nuclear Antibody Pending Microbiology 09/29 1809 URINE ROUT: Legionella Antigen - COLB 09/29 1809 URINE ROUT: Streptococcus pneumoniae Antigen (M - COLB 09/29 1535 BLOOD: Blood Culture - RECD 09/29 1520 BLOOD: Blood Culture - RECD 09/29 1455 LOWER RESP: Respiratory Culture - COLB 09/29 145 LOWER RESP: Gram Stain - COLB Assessment/Plan Assessment: Ms. Winslow is a 57 yo F with nicotine dependence and cervical cancer who presents to the ED with CP 3 days. Problem list: #Atypical chest pain -pleuritic in nature and less likely ACS #?CAP #Left upper lobe and retrosternal nodules - may be secondary to malignancy given her smoking history Plan: Renal ultrasound showed simple cysts Watch off antibiotics as per ID We will obtain a quantiferon for history of positive PPD as per ID Appreciate Pulm recommendations Obtain records from [facility] Diet: Regular DVT ppx: Enoxaparin Code: Full Dispo: ABBY Problem List: 1. Cavitary lesion of lung Pain Ratin Pain Location: NA Pain Goal: Remain pain free Pain Plan: NA Tomorrow's Labs & Rationales: none
[2017-09-30 07:31] VITALS: BP 105/56
[2017-09-30 10:20] LABS: ABSOLUTE BASOPHIL COUNT 0.1 /CUMM (0.0-0.2); ABSOLUTE EOSINOPHIL COUNT 0.1 /CUMM (0.0-0.7); ABSOLUTE GRANULOCYTE CT 6.3 /CUMM (1.4-6.5); ABSOLUTE MONOCYTE COUNT 0.7 /CUMM (0.10-0.60); BASOPHIL % 0.5 % (0.0-2.0); EOSINOPHIL % 1.1 % (0-5); GRANULOCYTE % 51.9 % (42.2-75.2); MEAN CORPUSCULAR HGB 30.4 PG (27.0-31.0); MEAN CORPUSCULAR VOLUME 89.4 FL (81.0-99.0); MEAN PLATELET VOLUME 8.8 FL (7.4-10.4); PLATELET COUNT 314 /CUMM (130-400); RBC DISTRIBUTION WIDTH 13.5 % (11.5-14.5); RED BLOOD CELL CT 4.25 /CUMM (4.20-5.40); WHITE BLOOD CELL COUNT 12.1 /CUMM (4.8-10.8)
--- NOTE | 2017-09-30 10:30 | Discharge Summary ---
Visit Information Visit Dates Admission Date: 09/29/17 Discharge Date: 09/30/17 Hospital Course Course Attending Physician: Osvaldo HARMON,Maxine Primary Care Physician: Mahamed HARMON,[facility] Course: Ms. Winslow is a 57 yo F with nicotine dependence and cervical cancer who presents to the ED with CP 3 days. She was admitted to the general medical floor for futher evaluation and management. She left AMA the following day. #Left upper lobe and retrosternal nodules ID and Pulmonology was consulted. Patient reported atypical chest pain that seemed to be pleuritic in nature. Imaging revealed We watched her off antibiotics. We obtained a quantiferon, JAC and RF that were all negative. Upon review of records from [place] she has had an abnormal chest imaging that has not been worked up. Prior to further investigation patient decided to leave against medical advice and the risks were explained to her in detail #Benign renal cyts Patient reports previous history of a renal lesion. Renal ultrasound showed simple cysts. CTA revealed a 2.2 cm partially exophytic mass arising from the posterior aspect of the left renal upper pole that seem to be consistent with bengin cysts Allergies: Coded Allergies: nitrofurantoin (From MACRODANTIN) (UNSURE 09/29/17) Pertinent Lab Results: 09/29/17- EXAM TYPE: US - US-RENAL/KIDNEY IMPRESSION: Neither hydronephrosis nor nephrolithiasis. Simple appearing cyst within the upper pole of the left kidney. 09/29/17-1037 EXAM TYPE: RAD - XRY-CHEST XRAY, TWO VIEWS IMPRESSION: Small left upper lobe and retrosternal nodules are questioned. Lytic foci are seen within the bilateral ribs and left clavicle. The possibilities of metastases and multiple myeloma are raised. Recommend further evaluation with CT. 09/29/17-1221 EXAM TYPE: CAT - CTA CHEST-PULMONARY EMBOLISM IMPRESSION: 1. No evidence of pulmonary embolism. 2. [id number] changes of centrilobular emphysema with upper lobe predominance. 3. Multiple thick-walled cavitary lesions in the left lung predominantly in the left upper lobe with the largest one in the left apex most probably represent thick-walled dilated bronchi. Possibility of septic emboli is in the differential, however, is thought to be less likely. Multiple tree-in-bud opacities throughout the lungs, left greater than right as detailed above. Left upper lobe paramediastinal consolidation with air bronchograms. The findings are consistent with airway infection and bronchopneumonia. Recommend close clinical follow up and imaging follow up. 4. No evidence of lymphadenopathy or pleural effusions. 5. A few discrete pulmonary nodules in the bilateral lower lobes measuring 4 mm. 6. A 2.2 cm partially exophytic mass arising from the posterior aspect of the left renal upper pole. Recommend ultrasound correlation. VTE: Negative Disposition Summary Disposition Principal Diagnosis: Left upper lobe nodules Chest pain Benign renal cyts Additional Diagnosis: as above Discharge Disposition: left against medical adv Discharge Instructions General Discharge Information Code Status: Full Code Patient's Diet: Regular Patient's Activity: Full Follow-Up Instructions/Appts: Follow up with the tractor trailer driver-Dr. Varghese within 1 week of discharge Follow up with your PCP within 1-2 weeks of discharge Copies To: Rachel Irby MD; Abimael HARMON,Chevy Daily; Damián HARMON,Giorgio Sellers
--- NOTE | 2017-09-30 10:30 | Patient Discharge Instructions ---
Discharge Instructions General Discharge Information You were seen/treated for: Left upper lobe nodules Chest pain You had these procedures: none Special Instructions: Follow up with the doll repairer-Dr. Varghese within 1 week of discharge Follow up with your PCP within 1-2 weeks of discharge Diet Continue normal diet: Yes Activity Full Activity/No Limits: Yes Acute Coronary Syndrome Inclusion Criteria At DC or during hospital stay patient has or had the following: ACS DIAGNOSIS No Discharge Core Measures Meds if any: Prescribed or Continued at Discharge Meds if any: NOT Prescribed or Continued at Discharge Congestive Heart Failure Inclusion Criteria At DC or during hospital stay patient has or had the following: CHF DIAGNOSIS No Discharge Core Measures Meds if any: Prescribed or Continued at Discharge Meds if any: NOT Prescribed or Continued at Discharge Cerebrovascular accident Inclusion Criteria At DC or during hospital stay patient has or had the following: CVA/TIA Diagnosis No Discharge Core Measures Meds if any: Prescribed or Continued at Discharge Meds if any: NOT Prescribed or Continued at Discharge Venous thromboembolism Inclusion Criteria VTE Diagnosis No VTE Type NONE VTE Confirmed by (Test) NONE Discharge Core Measures - Per Current guidelines, there needs to be overlap - treatment for the first 5 days of Warfarin therapy. - If discharged on Warfarin prior to 5 days of - overlap therapy, the patient will need to be - assessed for post discharge needs including - *Post discharge parental anticoagulation - *Warfarin and/or parental anticoagulation education - *Follow up date to check INR post discharge At least 5 days overlap therapy as Inpatient No Meds if any: Prescribed or Continued at Discharge Note: Overlap Therapy is Warfarin and Anticoagulant Meds if any: NOT Prescribed or Continued at Discharge
--- NOTE | 2017-09-30 10:55 | PN- Infect Dx ---
Subjective Subjective: Afebrile. She continues to report left chest pain, somewhat pleuritic in nature. She also notes some nasal/sinus congestion, with a minimal cough. She does report some limitation to deep inspiration. Objective Last 24 Hrs of Vital Signs/I&O Vital Signs Date Time Temp Pulse Resp B/P B/P Pulse O2 O2 Flow FiO2 Mean Ox Delivery Rate 09/30 0835 95 Room Air 09/30 0731 98.7 67 20 105/56 95 Room Air 09/30 0000 Room Air 09/29 2257 99.4 77 18 101/55 94 Room Air 09/29 2156 Room Air 09/29 1700 97 Room Air 09/29 1700 98.4 77 18 133/66 96 Room Air 09/29 1657 98.4 77 18 133/66 96 Room Air 09/29 1524 98.7 73 20 120/62 95 Room Air 09/29 1335 98.6 88 19 158/70 98 Room Air Intake & Output 09/30 1600 09/30 0800 09/30 0000 Intake Total 480 490 Output Total 400 Balance 80 490 Intake, IV 0 10 Intake, Oral 480 480 Number 0 0 Bowel Movements Output, Urine 400 Patient 135 lb Weight Weight Reported by Patient Measurement Method Physical Exam Other Physical Findings: She appears comfortable in no acute distress Chest no tenderness on palpation of the left chest Lungs are clear Heart regular rhythm with no murmur Extremities no cyanosis, clubbing or edema Results Last 24 Hours of Lab Results: Laboratory Tests 09/30 09/29 09/29 0946 1915 1300 Chemistry Sodium (137 - 145 mmol/L) 143 Potassium (3.5 - 5.1 mmol/L) 4.3 Chloride (98 - 107 mmol/L) 102 Carbon Dioxide (22 - 30 mmol/L) 27 Anion Gap (5 - 16) 14 BUN (7 - 17 mg/dL) 19 H Creatinine (0.5 - 1.0 mg/dL) 0.8 Estimated GFR (>60 ml/min) > 60 BUN/Creatinine Ratio (7 - 25 %) 23.8 Troponin I (< 0.11 ng/ml) < 0.01 Hematology CBC w Diff NO MAN DIFF REQ WBC (4.8 - 10.8 /CUMM) 12.1 H RBC (4.20 - 5.40 /CUMM) 4.25 Hgb (12.0 - 16.0 G/DL) 12.9 Hct (37 - 47 %) 38.0 MCV (81.0 - 99.0 FL) 89.4 MCH (27.0 - 31.0 PG) 30.4 MCHC (33.0 - 37.0 G/DL) 34.0 RDW (11.5 - 14.5 %) 13.5 Plt Count (130 - 400 /CUMM) 314 MPV (7.4 - 10.4 FL) 8.8 Gran % (42.2 - 75.2 %) 51.9 Lymphocytes % (20.5 - 51.1 %) 41.1 Monocytes % (1.7 - 9.3 %) 5.4 Eosinophils % (0 - 5 %) 1.1 Basophils % (0.0 - 2.0 %) 0.5 Absolute Granulocytes (1.4 - 6.5 /CUMM) 6.3 Absolute Lymphocytes (1.2 - 3.4 /CUMM) 5.0 H Absolute Monocytes (0.10 - 0.60 /CUMM) 0.7 H Absolute Eosinophils (0.0 - 0.7 /CUMM) 0.1 Absolute Basophils (0.0 - 0.2 /CUMM) 0.1 Serology TB Test (QFT) Mitogen Pending TB Test Mitogen - Nil Pending TB Test Antigen - Nil Pending TB Test (QFT) Interp Pending Last 24 Hours of Ramos Results: Blood cultures 2 September 29 negative Sputum culture September 30 pending Recent Imaging Studies: Renal ultrasound September 29 reveals a simple appearing cyst within the upper pole of the left kidney Assessment/Plan ID Impression: Cavitary lung disease of unclear etiology with no fevers or other definite signs of pneumonia, raising concern for a noninfectious process, perhaps rheumatologic (for example rheumatoid lung or granulomatosis with polyangiitis) given her history of an elevated ESR (which is now 61) and positive JAC. She has been seen by a dry house operator several times over the past few months, with no clear diagnosis made. Her white blood cell count is elevated but has been elevated on previous occasions over the past several years and, therefore, is of unclear significance. An infectious process is possible but seems less likely and, therefore, am not inclined to treat her empirically with antibiotics but will await Pulmonary evaluation. Of note a QuantiFERON was done recently at [place] and was negative. A CT of the abdomen and pelvis done 2-1/2 years ago at [place] revealed a nodular left lower lobe density, but the complete chest was not imaged. Suggestion: 1. Would send an ANCA and rheumatoid factor and follow-up JAC 2. Await Pulmonary evaluation 3. Continue to follow off antibiotics pending above
== END 2017-09-30 10:44 | disposition left against medical advice (07) | DRG 313 ==
LOC: ERH 08:50 → 2NB 15:33 → ERHI 15:33 → ENRESERV 16:18 → 2NB 17:02
PROVIDERS: Internal Medicine Cardiovascular Disease; Physician Assistant
DX: R07.89 Other chest pain (principal); R91.8 Other nonspecific abnormal finding of lung field; N28.1 Cyst of kidney, acquired; C53.9 Malignant neoplasm of cervix uteri, unspecified; F17.200 Nicotine dependence, unspecified, uncomplicated; R68.84 Jaw pain; N64.4 Mastodynia; R05 Cough
CPT/HCPCS: 2NBP; 86480; 36415; 71046; 76775; 81001; 82436; 86431; 87040; 87070; 87449; 87450; 93005; 93010